=== PATIENT | female | born 1985 | race Caucasian/White ===

== ENCOUNTER 2017-12-02 15:57 | Outpatient (CLI) | payer BC ==
--- NOTE | 2017-12-02 18:21 | RAD ---
RADIOGRAPH LEFT KNEE 4 VIEWS: 12/02/17 HISTORY: 32-year-old female with left knee joint effusion. [id number]. COMPARISON: None. FINDINGS: There is a moderate sized suprapatellar joint effusion. No fracture or dislocation. Joint spaces are maintained. Minimal osteophytosis and minimal irregularity at the patellofemoral compartment. Medial and lateral compartments appear normal. No osteolytic, osteoblastic, or permeative lesion. No periost eal elevation. IMPRESSION: 1. Joint effusion. 2. 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 3. No other osseous abnormality. POS: [facility]
== END 2017-12-02 15:58 | disposition home or self-care (01) ==
LOC: BURRAD 15:57
PROVIDERS: ATTEND Physician Assistant
DX: M25.462 Effusion, left knee (principal)

== ENCOUNTER 2018-10-13 09:04 | Outpatient (CLI) | payer BC ==
--- NOTE | 2018-10-13 21:52 | ULT ---
RIGHT UPPER QUADRANT ULTRASOUND: 10/13/18 Ultrasonography of the right upper quadrant was performed for evaluation of right upper quadrant pain . The liver is mildly enlarged measuring 17.6 cm in oblique sagittal length. Internally, however, it wa s unremarkable. No mass or dilated ducts were seen. The gallbladder contained no signs of stones or w all thickening. The common bile duct was borderline in width at 6 mm. No masses were seen in the visi ble portions of the pancreas. The right kidney was 9.4 cm in length and appeared normal. IMPRESSION: 1. Mild hepatomegaly. No internal abnormality seen. 2. Borderline size of the common bile duct (6 mm). This may be normal in this patient as I see n o other findings of concern. POS: HOME
== END 2018-10-13 09:05 | disposition home or self-care (01) ==
LOC: BURULT 09:04
PROVIDERS: ATTEND Physician Assistant
DX: R10.11 Right upper quadrant pain (principal); R16.0 Hepatomegaly, not elsewhere classified
CPT/HCPCS: 76705

== ENCOUNTER 2019-03-27 23:08 | Emergency (ER) | payer BC ==
[2019-03-27 23:50] LABS: BHCG - Serum Negative (NEGATIVE); Pregs Control Bar Appear? YES (CONTROL BAR)
[2019-03-27 23:51] LABS: Pregs Control Background? CLEAR/WHITE (CLR/WHITE)
[2019-03-28 00:08] LABS: #Basophils 0.2 thou/uL (0.0-0.2); #Eosinphils 0.1 thou/uL (0.0-0.7); #Lymphocytes 1.5 thou/uL (1.20-3.40); #Monocytes 0.5 thou/uL (0.11-0.59); %Basophils 1.6 % (0.0-1.0); %Lymphocytes 14.3 % (21.0-51.0); %Monocytes 4.5 % (0.0-10.0); %Neutrophils 78.6 % (42.0-75.0); Hemoglobin 14.4 g/dL (12.0-16.0); Mean Corpuscular HGB CONC 32.5 g/dL (32.0-36.0); Mean Corpuscular Hemoglobin 28.3 pg (27.0-31.0); Mean Corpuscular Volume 87.2 fL (78.0-98.0); Mean Platelet Volume 7.4 fL (7.4-10.4); Platelet Count 376 thou/uL (130-400); RBC Distribution Width 12.7 % (11.5-14.5); Red Blood Cell (RBC) Count 5.08 mill/uL (4.20-5.40); White Blood Cell (WBC) Count 10.1 thou/uL (4.8-10.8)
== END 2019-03-28 00:10 | disposition home or self-care (01) ==
LOC: BURERS 23:08
DX: R55 Syncope and collapse (principal); J45.909 Unspecified asthma, uncomplicated; Z79.899 Other long term (current) drug therapy
CPT/HCPCS: 36415; 84703; 85025

== ENCOUNTER 2022-06-29 21:28 | Emergency (ER) | payer BC, OTHER | END 2022-06-29 21:35 | disposition left against medical advice (07) | LOC: BURERS 21:28 | DX: Z53.21 Procedure and treatment not carried out due to patient leaving prior to being seen by health care provider (principal) ==